=== PATIENT | male | born 1945 | race African-American/Black ===

== ENCOUNTER 2018-10-19 13:49 | Emergency (ER) | payer MEDICARE, OTHER ==
[~2018-10-19] VITALS: Ht 172.7 cm; Wt 70.0 kg
[2018-10-19 13:55] VITALS: BP 130/70
== END 2018-10-19 14:57 | disposition left against medical advice (07) ==
LOC: ER 13:49
DX: R55 Syncope and collapse (principal); Z53.21 Procedure and treatment not carried out due to patient leaving prior to being seen by health care provider

== ENCOUNTER 2023-12-22 13:17 | Emergency (ER) | payer MEDICARE, OTHER ==
[~2023-12-22] VITALS: Ht 185.4 cm; Wt 82.0 kg
[2023-12-22 13:20] VITALS: O2SAT 99
[2023-12-22 14:02] LABS: HEMATOCRIT. 42.8 % (42.0-52.0); HEMOGLOBIN. 14.4 g/dL (14.0-18.0); MEAN CORPUSCULAR HEMOGLOBIN 30.3 pg (28.0-32.0); MEAN CORPUSCULAR HGB CONC 33.7 g/dL (31.0-37.0); MEAN CORPUSCULAR VOLUME 90.2 fL (80.0-94.0); MEAN PLATELET VOLUME 8.6 fl (7.4-10.4); PLATELET 123 x1000/uL (130-400); RED BLOOD CELL COUNT 4.75 mill/uL (4.7-6.1); RED CELL DISTRIBUTION WIDTH 13.7 % (11.6-14.6); WHITE BLOOD COUNT 7.4 x1000/uL (4.5-11.0)
[2023-12-22 14:05] LABS: DIFFERENTIAL COMMENT 1
[2023-12-22 14:14] LABS: PARTIAL THROMBOPLASTIN TIME 24.8 sec (23.4-31.0); PROTHROMBIN TIME 11.3 sec (9.6-11.0)
[2023-12-22 14:19] LABS: LACTIC ACID 2.3 mmol/L (0.4-2.0)
[2023-12-22 14:23] LABS: ALANINE AMINOTRANSFERASE 30 IU/L (10-49); ALBUMIN 4.2 g/dL (3.2-4.8); ASPARTATE AMINOTRANSFERASE 36 IU/L (<34); BILIRUBIN TOTAL 0.6 mg/dL (0.1-1.0); CALCIUM 8.8 mg/dL (8.7-10.4); CARBON DIOXIDE 23 mEq/L (21-32); CHLORIDE 108 mEq/L (98-107); CREATININE 1.1 mg/dL (0.6-1.3); GLUCOSE 87 mg/dL (70-105); POTASSIUM 4.1 mEq/L (3.5-5.1); PROTEIN TOTAL 6.4 g/dL (6.0-8.3); SODIUM 139 mEq/L (136-145); TROPONIN I HIGH SENSITIVITY 5 ng/L (3.0-53); UREA NITROGEN BLOOD 14 mg/dL (9-23)
[2023-12-22] MEDS: ACETAMINOPHEN 325MG TABLET PO STA (14:25)
[2023-12-22 14:32] LABS: ETHANOL BLOOD < 10 mg/dL (<10)
[2023-12-22 15:12] LABS: PLATELET ESTIMATE SLIGHTLY DECREASED
[2023-12-22 17:06] LABS: TROPONIN I HIGH SENSITIVITY 7 ng/L (3.0-53)
[2023-12-22 17:35] LABS: CLARITY URINE CLEAR (CLEAR); COLOR URINE DARK YELLOW (YELLOW); GLUCOSE URINE NEGATIVE (NEGATIVE); KETONES URINE TRACE (NEGATIVE); LEUKOCYTE ESTERASE URINE NEGATIVE (NEGATIVE); NITRITE URINE NEGATIVE (NEGATIVE); OCCULT BLOOD URINE NEGATIVE (NEGATIVE); PROTEIN URINE TRACE (NEGATIVE); SPECIFIC GRAVITY URINE 1.023 (1.005-1.030)
[2023-12-22 17:47] LABS: *AMPHETAMINES SCREEN URINE NEGATIVE (NEGATIVE); *BARBITURATES SCREEN URINE NEGATIVE (NEGATIVE); *BENZODIAZEPINES SCREEN URINE NEGATIVE (NEGATIVE); *COCAINE SCREEN URINE NEGATIVE (NEGATIVE); CANNABINOID URINE SCREEN NEGATIVE (NEGATIVE); ECSTASY MDMA SCREEN URINE NEGATIVE (NEGATIVE); METHADONE URINE SCREEN Neg (NEGATIVE); OPIATES URINE SCREEN NEGATIVE (NEGATIVE); PHENCYCLIDINE URINE SCREEN NEGATIVE (NEGATIVE)
[2023-12-22] MEDS: ACETAMINOPHEN 325MG TABLET PO NR (17:50)
[2023-12-22] MEDS: SODIUM CHLORIDE 0.9% 1,000 ML IV ONE (17:50)
[2023-12-22 17:52] LABS: BACTERIA URINE TRACE; RBC URINE NONE SEEN /hpf (0-2); SQUAMOUS EPITHELIAL CELL URINE RARE /lpf (RARE/1+); WBC URINE NONE SEEN /hpf (0-2)
[2023-12-22 20:30] VITALS: BP 144/104; PULSE 98; RESP 12; TEMP 99.5
[2023-12-22] MEDS ORDERED: AMOX-494 MT (20:57)
[2023-12-22] MEDS ORDERED: TOPUD PO (20:58)
[2023-12-22] MEDS ORDERED: IBUP-2028 MT (20:58)
== END 2023-12-22 22:12 | disposition home or self-care (01) ==
LOC: ER 13:17
DX: R50.9 Fever, unspecified (principal); J02.9 Acute pharyngitis, unspecified; R55 Syncope and collapse; E78.00 Pure hypercholesterolemia, unspecified; Z20.822 Contact with and (suspected) exposure to COVID-19
CPT/HCPCS: 80053; 80305; 81003; 80320; 83880; 83605; 83690; 85025; 85610; 85730; 87040; 87086; 84484; 87804 ×2; 36415; 84145; 71045; 93005; 99285; 87426; J7030; G0480